=== PATIENT | male | born 1975 | race Caucasian/White ===

== ENCOUNTER 2020-08-12 14:38 | Emergency (ER) | payer BC ==
[2020-08-12 14:51] VITALS: BP 136/78; PULSE 77; TEMP 98; BMI 27.4
[2020-08-12] MEDS ORDERED: diazePAM 5 MG TABLET PO ONE (15:41)
[2020-08-12] MEDS ORDERED: KETOROLAC TROMETHAMINE 30 MG/1 ML VIAL IM ONE (15:41)
[2020-08-12] MEDS ORDERED: diazePAM 5 MG TABLET ONE (15:43)
[2020-08-12] MEDS ORDERED: KETOROLAC TROMETHAMINE 30 MG/1 ML VIAL ONE (15:43)
== END 2020-08-12 17:04 | disposition home or self-care (01) ==
LOC: JERFT 14:38
PROC: 3E0233Z Introduction of Anti-inflammatory into Muscle, Percutaneous Approach (ICD-10-PCS; principal; 2020-08-12)
DX: M54.42 Lumbago with sciatica, left side (principal)
CPT/HCPCS: 72100-TC-FY; 73523-TC-FY; 99284-25